=== PATIENT | male | born 1935 | race Caucasian/White ===

== ENCOUNTER 2021-08-30 18:25 | Emergency (ER) | payer OTHER, SELFPAY ==
[~2021-08-30] VITALS: Ht 170.2 cm; Wt 72.6 kg
[2021-08-30 18:30] VITALS: BP_SYST 107
[2021-08-30 19:19] LABS: BASOPHILS % (AUTO) 0.5 % (0.0-2.0); EOSINOPHILS # (AUTO) 0.2 K/uL (0.0-0.4); EOSINOPHILS % (AUTO) 2.5 % (0.0-4.0); HEMATOCRIT 39.6 % (36-54); LYMPHOCYTES # (AUTO) 1.4 K/uL (1.0-5.5); LYMPHOCYTES % (AUTO) 19.4 % (20.5-51.5); MEAN CORPUSCULAR HEMOGLOBIN 30 pg (27-31); MEAN CORPUSCULAR HGB CONC 33 % (32-36); MEAN CORPUSCULAR VOLUME 92 fL (79.0-98.0); MONOCYTES # (AUTO) 0.5 K/uL (0.0-1.0); MONOCYTES % (AUTO) 6.4 % (1.7-9.3); NEUTROPHILS % (AUTO) 71.2 % (40.0-70.0); PLATELET COUNT (AUTO) 309 K/uL (130-430); RED BLOOD CELL COUNT(AUTO) 4.32 MIL/uL (4.2-6.2); RED CELL DISTRIBUTION WIDTH 14.7 % (9.0-15.0); WHITE BLOOD COUNT (AUTO) 7.1 K/uL (4.8-10.8)
[2021-08-30 19:51] LABS: ANION GAP 11 (5-15); CALCIUM 9.9 mg/dL (8.4-11.0); CHLORIDE 106 mmol/L (98-107); CREATININE 1.29 mg/dL (0.55-1.30); GLUCOSE 112 mg/dL (70-99); POTASSIUM 4.3 mmol/L (3.5-5.1); SODIUM SERUM 143 mmol/L (136-145); UREA NITROGEN, BLOOD 33 mg/dL (8-21)
[2021-08-30 19:56] LABS: ALANINE AMINOTRANSFERASE 23 U/L (12-78); ALBUMIN 2.9 g/dL (3.4-4.8); ASPARTATE AMINOTRANSFERASE 18 U/L (10-37); LIPASE 212 U/L (73-393); PHOSPHORUS 3.2 mg/dL (2.7-4.5)
[2021-08-30] MEDS ORDERED: OSELTAMIVIR PHOSPHATE 75 MG CAPSULE PO ONE (20:00)
[2021-08-30 20:14] LABS: TOTAL BILIRUBIN 0.1 mg/dL (0.0-1.0)
[2021-08-30] MEDS ORDERED: NACL 0.9% 1,000 ML IV ONE (20:30)
[2021-08-30] MEDS ORDERED: IOHEXOL 350 mgI/mL, 150 ML INFUS..BTL IV ONE (20:31)
[2021-08-30] MEDS ORDERED: OSEL75CA PO (21:52)
[2021-08-30 22:45] VITALS: BP_SYST 116
== END 2021-08-30 22:45 | disposition home or self-care (01) ==
LOC: SED 18:25
DX: J11.1 Influenza due to unidentified influenza virus with other respiratory manifestations (principal); E04.9 Nontoxic goiter, unspecified; R79.1 Abnormal coagulation profile; I10 Essential (primary) hypertension; Z79.899 Other long term (current) drug therapy; Z20.822 Contact with and (suspected) exposure to COVID-19
CPT/HCPCS: 36415; 71045; 71275; 76376; 80053; 82550; 83605; 83690; 83735; 83880; 84100; 84484; 85025; 85379; 87040; 87426; 87804 ×2; 93005; 96360; 99285; G9035; J7030; Q9967